=== PATIENT | male | born 1970 | race Caucasian/White ===

== ENCOUNTER → 2018-06-03 | Outpatient (CLI) | payer OTHER ==
--- NOTE | 2018-06-03 11:59 | PCVCIMAG ---
APPROVED REPORT Study performed: 06/03/2018 10:31:26 EXAM: Comprehensive 2D, Doppler, and color-flow Echocardiogram Patient Location: Echo lab Room #: 2Status: routine BSA: 2.41 HR: 68 bpmBP: 126/84 mmHg Rhythm: NSR Other Information Study Quality: Adequate Risk Factors: Cardiac Risk Factors: HTN, Hyperlipidemia Indications Chest Pressure Dyspnea Hypertension/HDD 2D Dimensions IVSd: 10.36 (7-11mm)LVOT Diam: 21.45 (18-24mm) LVDd: 52.27 mm PWd: 10.33 (7-11mm)Ascending Ao: 28.64 (22-36mm) LVDs: 37.09 (25-40mm) Left Atrium: 29.92 (27-40mm) Aortic Root: 28.80 mm LV Single Plane 4CH: 47.17 % LV Single Plane 2CH: 57.27 % Biplane EF: 52.8 % Volumes Left Atrial Volume (Systole) Single Plane 4CH: 41.74 mLSingle Plane 2CH: 43.38 mL Biplane LA Volume: 44.00 mLLA ESV Index: 18.00 mL/m2 Aortic Valve AoV Peak Xavier.: 1.42 m/s AO Peak Gr.: 8.31 mmHgLVOT Max P.18 mmHg LVOT Max V: 1.09 m/s CAMILO Vmax: 2.76 cm2 Mitral Valve E/A Ratio: 1.1 MV Decel. Time: 171.62 ms MV E Max Xavier.: 0.60 m/s MV A Xavier.: 0.56 m/s IVRT: 83.04 ms TDI E/Lateral E': 6.00E/Medial E': 7.50 Medial E' Xavier.: 0.08 m/s Lateral E' Xavier.: 0.10 m/s Pulmonary Valve PV Peak Xavier.: 1.31 m/sPV Peak Gr.: 6.86 mmHg Pulmonary Vein P Vein S: 0.53 m/sP Vein A: 0.32 m/s P Vein D: 0.50 m/sP Vein A Dur.: 83.0 msec P Vein S/D Ratio: 1.06 Tricuspid Valve TR Peak Xavier.: 1.03 m/s TR Peak Gr.: 4.26 mmHg TV Vmax: 0.55 m/sPA Pressure: 11.00 mmHg Left Ventricle The left ventricle is normal size. There is normal LV segmental wall motion. There is normal left ventricular wall thickness. Left ventricular systolic function is normal. The left ventricular ejection fraction is within the normal range. LVEF is 50-55%. The left ventricular diastolic function is normal. Right Ventricle The right ventricle is normal size. The right ventricular systolic function is normal. Atria The left atrium size is normal. The right atrium size is normal. Aortic Valve Aortic valve is trileaflet. The aortic valve is normal in structure and function. No aortic regurgitation is present. There is no aortic valvular stenosis. Mitral Valve The mitral valve is normal in structure. There is no mitral valve regurgitation noted. No evidence of mitral valve stenosis. Tricuspid Valve The tricuspid valve is normal in structure. Trace tricuspid regurgitation. No pulmonary hypertension. Pulmonic Valve The pulmonary valve is normal in structure. There is no pulmonic valvular regurgitation. Great Vessels The aortic root is normal in size. The ascending aorta is normal in size. Aortic arch is normal in caliber. IVC is normal in size and collapses >50% with inspiration. Pericardium There is no pericardial effusion. There is no pleural effusion. <Conclusion> There is normal left ventricular wall thickness. Left ventricular systolic function is normal. The left ventricular diastolic function is normal. The right ventricle is normal size. The left atrium size is normal. The aortic valve is normal in structure and function. The mitral valve is normal in structure. Trace tricuspid regurgitation.
--- NOTE | 2018-06-03 12:02 | PCVCIMAG ---
APPROVED REPORT Study performed: 06/03/2018 11:15:25 Exam: Stress Echocardiogram Indication: Chest pressure, Dyspnea , Hypertension Patient Location: Echo lab Stress Nurse: Luciana Oseguera RN Room #: 2 Status: routine Ht: 5 ft 11 in HR: 75 bpm BP: 126/84 mmHg Rhythm: NSR Medical History Medical History: HTN, Hyperlipidemia, Obesity Cardiac Risk Factors: HTN, Hyperlipidemia Previous Cardiac Procedures: none Pretest Chest Pain Characteristics: No chest pain Exercise History: Indeterminate Procedure The patient underwent an Exercise Stress Test using the Darin Protocol. Blood pressure, heart rate, and EKG were monitored. An Echocardiogram was performed by aircraft engine technician in four stages in quad fashion. At peak stress, four selected images were obtained and placed side by side with resting images for comparison. Stress Test Details Stress Test: Exercise stress testing was performed using a Darin protocol. HR Resting HR: 75 bpmMax Heart Rate (APMHR): 174 bpm Max HR Achieved: 171 bpmTarget HR (85% APMHR): 147 bpm % of APMHR: 98 Recovery HR: 99 bpm HR response to stress: Normal HR response to stress BP Resting BP: 126/84 mmHg Max BP: 176/84 mmHg Recovery BP: 156/72 mmHg BP response to stress: Normal blood pressure response to stress. ECG Resting ECG: Sinus Rhythm Stress ECG: Sinus Rhythm ST Change: Non-ischemic Arrhythmia: Rare PVCs Recovery ECG: Sinus Rhythm Recovery ST Change: Non-ischemic Recovery Arrhythmia: Rare PVCs Clinical Reason for Termination: Maximal effort Stress Symptoms: Dyspnea, Leg Fatigue Exercise duration: 7 min 59 sec Highest Stage Achieved: Stage 3: 3.4 mph at 14% grade. Exercise capacity: 10.1 METs Overall Exercise Capacity for Age: Poor Scale: Sedentary Angina Score: None No complications. Stress ECG Conclusion The patient exercised according to the DARIN protocol for 7:59 mins; achieving a work level of 10.1 METS. The resting heart rate of 75 bpm doug to a maximum heart rate of 171 bpm. This value represent 98% of the maximal, age-predicted heart rate. The resting blood pressure of 126/84 mmHg, doug to a maximum blood pressure of 176/84 mmHg. The exercise test was stopped due to fatigue. Pre-Stress Echo The resting Echocardiogram showed normal left ventricular contractility with an estimated Ejection Fraction of about 50-55%. Normal wall motion in all segments on baseline images. Post-Stress Echo The stress Echocardiogram showed normal left ventricular contractility with an estimated Ejection Fraction of about 65-70%. Normal augmentation of wall motion in all segments on post stress images. Clinical No clinical or ECG evidence for ischemia. Conclusion Clinical Response: Non-ischemic Exercise Capacity: Below Average Stress ECG Response: Non-ischemic Stress Echo Images: Non-ischemic No clinical, EKG or echocardiographic evidence for ischemia. <Conclusion> No clinical, EKG or echocardiographic evidence for ischemia.
== END | disposition home or self-care (01) ==
LOC: PCVCIMAG 10:22
PROVIDERS: ATTEND Internal Medicine Cardiovascular Disease
DX: R07.89 Other chest pain (principal); R06.09 Other forms of dyspnea; I10 Essential (primary) hypertension
CPT/HCPCS: 93306; 93351